=== PATIENT | female | born 1950 | race Caucasian/White ===

== ENCOUNTER 2018-05-14 10:18 | Inpatient (IN) ==
--- NOTE | 2018-05-14 10:27 | P.HPUP ---
The Pre-Admit History and Physical Examination regarding the above named patient was reviewed (including, but not limited to, vital signs, heart, lungs, co-morbid conditions), and upon re-examination it is noted that: the patient's condition has not significantly changed since the last examination.
[2018-05-14] MEDS ORDERED: Chlorhexidine Gluconate 2% 1 Pack (2 Cloths) TOPICAL ONE (10:37)
[2018-05-14] MEDS ORDERED: Metoprolol Tartrate 25 MG Tablet PO ONE (10:37)
[2018-05-14] MEDS ORDERED: ceFAZolin Inj 1 GM in Sodium Chlor 0.9% Inj 100 ML IV.SIG SCH (11:00)
[2018-05-14] MEDS ORDERED: Sodium Chlor 0.9% Inj 500 ML IV.SIG ONE (11:00)
[2018-05-14] MEDS ORDERED: Sodium Chloride 0.9% 2 ML Flush PRN IV.FLUSH (11:05)
[2018-05-14] MEDS: Dextrose 5%/NaCl 0.9% Inj 1,000 ML IV.CONT SCH ×2 (11:20→18:04)
[2018-05-14] MEDS ORDERED: Bupivacaine 0.5% Inj 50 ML MDV Vial ONE (12:20)
[2018-05-14] MEDS ORDERED: Phenylephrine/NS 1000 MCG/10ML Syringe IV.PUSH ONE (12:40)
[2018-05-14] MEDS ORDERED: Neostigmine Inj 5 MG/5 ML Syringe IV.PUSH ONE (12:40)
[2018-05-14] MEDS ORDERED: Normosol-R pH 7.4 Inj 3,000 ML IV.CONT ONE (12:40)
[2018-05-14] MEDS ORDERED: Glycopyrrolate Inj 1 MG/5 ML Syringe IV.PUSH ONE (12:40)
[2018-05-14] MEDS ORDERED: Lidocaine PF 1% Inj 5 ML Syringe OTHER ONE (12:40)
[2018-05-14] MEDS ORDERED: Potassium Chlor 40 mEq Premix 40 MEQ/100 ML PIGGYBACK IV.SIG PRN (14:42)
[2018-05-14] MEDS ORDERED: Bupivacaine PF 0.5% Inj 30 ML Vial NERV BLOCK PRN (14:42)
[2018-05-14] MEDS ORDERED: Potassium Chlor 20 mEq Premix 20 MEQ/100 ML PIGGYBACK IV.SIG PRN (14:42)
[2018-05-14] MEDS ORDERED: Ketorolac Inj 30 MG/ML (IVP) Vial IV.PUSH PRN (14:42)
[2018-05-14] MEDS ORDERED: Naloxone Inj 0.4 MG/ML Vial IV.PUSH PRN (14:42)
[2018-05-14] MEDS ORDERED: fentaNYL Citrate Inj 100 MCG/2 ML Ampul ONE ×2 (14:49)
[2018-05-14] MEDS ORDERED: Morphine Inj 30 MG/30 ML PCA.VIAL PCA ONE (15:19)
[2018-05-14] MEDS ORDERED: KCL 20 mEq/D5W/NaCl 0.9% Inj 1,000 ML ONE (15:19)
[2018-05-14] MEDS: Morphine Inj 30 MG/30 ML PCA.VIAL PCA PRN (15:30)
[2018-05-14] MEDS: KCL 20 mEq/D5W/NaCl 0.9% Inj 1,000 ML IV.CONT SCH ×2 (16:44→21:35)
[2018-05-14] MEDS: ceFAZolin Inj 1 GM in Sodium Chlor 0.9% Inj 100 ML IV.SIG SCH (18:25)
[2018-05-14] MEDS ORDERED: Sodium Chloride 0.9% 2 ML Flush BID IV.FLUSH SCH (21:00)
[2018-05-14] MEDS: Topiramate 25 MG Tablet PO SCH (21:35)
[2018-05-14] MEDS: Sertraline 100 MG Tablet PO SCH (22:11)
[2018-05-15] MEDS: ceFAZolin Inj 1 GM in Sodium Chlor 0.9% Inj 100 ML IV.SIG SCH ×2 (01:11→06:18)
[2018-05-15 04:27] LABS: Hematocrit 32.1 % (35.0-46.0); Hemoglobin 10.6 gm/dL (11.6-15.3); Lymph # (Auto) 0.7 th/mm3 (1.0-4.8); Lymph % (Auto) 8.5 % (9.0-44.0); Mean Corpuscular HGB Conc 33.2 % (32.0-36.0); Mean Corpuscular Hemoglobin 30.2 pg (27.0-34.0); Mean Corpuscular Volume 91.1 fL (80.0-100.0); Mean Platelet Volume 8.4 fL (7.0-11.0); Mono # (Auto) 0.7 th/mm3 (0.0-0.9); Mono % (Auto) 8.2 % (0.0-8.0); Neut # (Auto) 7.1 th/mm3 (1.8-7.7); Neut % (Auto) 83.3 % (16.0-70.0); Platelet Count 166 th/mm3 (150-450); Red Blood Count 3.52 mil/mm3 (4.00-5.30); Red Cell Distribution Width 14.1 % (11.6-17.2); White Blood Count 8.5 th/mm3 (4.0-11.0)
[2018-05-15] MEDS: Dextrose 5%/NaCl 0.9% Inj 1,000 ML IV.CONT SCH (04:39)
[2018-05-15 04:56] LABS: Calcium 7.5 mg/dL (8.5-10.1); Carbon Dioxide 24.9 meq/L (21.0-32.0)
[2018-05-15] MEDS: KCL 20 mEq/D5W/NaCl 0.9% Inj 1,000 ML IV.CONT SCH (07:19)
--- NOTE | 2018-05-15 07:36 | P.PNCS ---
Subjective Colorectal Surgery Post Op Day #: 1 Interval history: afebrile, VSS UO good comfortable Objective Result Diagrams: 05/15/18 03:46 05/15/18 03:46 Objective Remarks: PE alert Abd - soft, wound dry, JUAN JOSE serous Assessment and Plan - Plan Imp: stable post-op OOB decr IVF tx to floor
[2018-05-15] MEDS: KCL 20 mEq/NACL 0.45% Inj 1,000 ML IV.CONT SCH ×2 (08:28→17:02)
[2018-05-15] MEDS: Topiramate 25 MG Tablet PO SCH ×2 (08:30→20:11)
[2018-05-15] MEDS: Pantoprazole Inj 40 MG Vial IV.PUSH SCH (08:30)
--- NOTE | 2018-05-15 09:21 | MR ---
cc: Timmy Epstein MD DATE: 05/14/2018 PREOPERATIVE DIAGNOSIS: Chronic diverticulitis. PROCEDURE: Exploratory laparotomy with proctosigmoidectomy and low pelvic anastomosis. POSTOPERATIVE DIAGNOSIS: Short segment diverticulitis. SURGEON: Timmy Epstein MD. DIE DESIGNER APPRENTICE: Joe Augustin MD. DETAILS OF PROCEDURE: The patient was placed in the supine position. After adequate general anesthesia, her legs were placed in the universal stirrups and supported appropriately. The abdomen and perineum were then prepped with Betadine solution and draped in the usual sterile fashion. With Dr. Augustin's assistance, the abdomen was opened through an infraumbilical transverse incision, dividing the rectus muscles with electrocautery. Exploration revealed area of the rectosigmoid which was thickened and edematous, a very short segment, but consistent with 1 or 2 inflamed diverticulum. The proximal and distal bowel was pretty unremarkable. The small bowel was run from ligament of Treitz down to the ileocecal valve and felt to be normal. The liver was normal with the gallbladder previously removed and a large cyst in the right lobe of the liver. The stomach and duodenum were unremarkable. The uterus was atrophic, appropriate for the patient's age. The right ovary had been removed. The left ovary was still present, but normal. Great vessels were of normal caliber and fairly soft. First, the sigmoid colon was mobilized medially by dividing along the white line of Toldt. The left ureter was identified and carefully preserved. Dissection then proceeded up to the left gutter, taking down attachments to the retroperitoneum, mobilizing the left colon, taking down the splenic flexure into the lesser sac, and taking the gastrocolic omentum off the transverse colon. The right retroperitoneal space was then opened and the bowel dissected off the presacral fascia. Pedicle for the superior hemorrhoidal vessel was identified and divided between Kellys, obtaining hemostasis with Vicryl ties. Dissection proceeded down, mobilizing the bowel off the presacral fascia toward the pelvic floor. At a point below the inflammatory process, the rectum appeared quite normal and pliable and the mesorectum was taken with electrocautery and Vicryl ties and the bowel finally divided between a pursestring suture device and a Vernon clamp. The bowel was then sized to reach the rectal pouch without tension and with good blood supply, preserving the left colic vessels. At the appropriate point, the marginal artery was taken and the bowel divided between the pursestring suture device and a Vernon clamp. The end of the bowel was sized to accept a 29 mm EEA stapling anvil and this was secured with a pursestring suture. Dr. Augustin then inserted the stapling instrument transanally under direct vision and was brought out to the end of rectal pouch and the pursestring suture tied. The stapler was then reassembled, the bowel aligned properly, the stapled closed and fired. Upon withdrawal, 2 complete donuts of tissue was seen. Gentle insufflation to confirm an airtight anastomosis. The abdomen was then irrigated copiously with normal saline. Adequate hemostasis achieved. A Isaias-Fernandes drain placed down into the presacral space and brought up through a stab wound in the right lower quadrant, secured to the skin with a nylon suture. Transverse incision closed anatomically in 2 layers using #1 PDS sutures to reapproximate the respective fascial layers. On-Q catheters were placed into the rectus sheaths on both sides and brought out through subcutaneous tunnels above the transverse incision. The subcutaneous tissue was irrigated copiously and the skin closed with a running subcuticular Vicryl suture. Wound area washed with normal saline and dried, sterile dressing of Telfa and gauze applied. The patient tolerated the procedure quite well and was brought to the recovery room in stable condition. The sponge and needle counts were correct at the end of the procedure. Timmy Epstein MD [facility]/rs , 07:55 AM , 08:02 AM
[2018-05-15] MEDS: Sertraline 100 MG Tablet PO SCH (20:11)
[2018-05-15] MEDS: Morphine Inj 30 MG/30 ML PCA.VIAL PCA PRN (20:45)
[2018-05-16] MEDS: KCL 20 mEq/NACL 0.45% Inj 1,000 ML IV.CONT SCH ×3 (02:42→23:03)
[2018-05-16 06:56] LABS: Baso % (Auto) 0.3 % (0.0-2.0); Eos % (Auto) 0.2 % (0.0-4.0); Hematocrit 30.5 % (35.0-46.0); Hemoglobin 10.1 gm/dL (11.6-15.3); Lymph # (Auto) 1.1 th/mm3 (1.0-4.8); Lymph % (Auto) 14.9 % (9.0-44.0); Mean Corpuscular Hemoglobin 29.8 pg (27.0-34.0); Mean Corpuscular Volume 90.3 fL (80.0-100.0); Mean Platelet Volume 8.5 fL (7.0-11.0); Mono # (Auto) 0.6 th/mm3 (0.0-0.9); Mono % (Auto) 7.3 % (0.0-8.0); Neut # (Auto) 5.9 th/mm3 (1.8-7.7); Neut % (Auto) 77.3 % (16.0-70.0); Platelet Count 158 th/mm3 (150-450); Red Blood Count 3.37 mil/mm3 (4.00-5.30); Red Cell Distribution Width 14.3 % (11.6-17.2); White Blood Count 7.6 th/mm3 (4.0-11.0)
[2018-05-16 07:30] LABS: Calcium 8.1 mg/dL (8.5-10.1); Carbon Dioxide 22.9 meq/L (21.0-32.0); Potassium 4.7 meq/L (3.5-5.1)
[2018-05-16] MEDS: Topiramate 25 MG Tablet PO SCH ×2 (09:37→20:18)
[2018-05-16] MEDS: Pantoprazole Inj 40 MG Vial IV.PUSH SCH (09:37)
--- NOTE | 2018-05-16 19:33 | P.PNCS ---
Subjective Colorectal Surgery Post Op Day #: 2 Interval history: afebrile, VSS UO good min PO Objective Result Diagrams: 05/16/18 06:07 05/16/18 06:07 Objective Remarks: PE alert Abd - soft, wound dry, JUAN JOSE serous Assessment and Plan - Plan Imp: OOB decr IVF tx to floor adv PO DC anguiano
[2018-05-16] MEDS: Sertraline 100 MG Tablet PO SCH (20:18)
[2018-05-17] MEDS: Topiramate 25 MG Tablet PO SCH ×2 (09:10→20:09)
[2018-05-17] MEDS: Pantoprazole Inj 40 MG Vial IV.PUSH SCH (09:11)
--- NOTE | 2018-05-17 09:48 | P.PNCS ---
Subjective Colorectal Surgery Post Op Day #: 3 Interval history: afebrile, VSS UO good raquel PO Objective Result Diagrams: 05/16/18 06:07 05/16/18 06:07 Objective Remarks: PE alert Abd - soft, wound dry, JUAN JOSE serous - min Assessment and Plan - Plan Imp: OOB decr IVF - hep lock tx to floor adv PO - reg food DC plans
[2018-05-17] MEDS: Sertraline 100 MG Tablet PO SCH (20:09)
[2018-05-17] MEDS: KCL 20 mEq/NACL 0.45% Inj 1,000 ML IV.CONT SCH (20:15)
[2018-05-17 20:19] VITALS: O2SAT 96
[2018-05-18 00:17] VITALS: RESP 17
[2018-05-18] MEDS: KCL 20 mEq/NACL 0.45% Inj 1,000 ML IV.CONT SCH (05:10)
[2018-05-18 09:45] VITALS: BP 127/63; PULSE 66; TEMP 99.3
[2018-05-18] MEDS: Pantoprazole Inj 40 MG Vial IV.PUSH SCH (09:54)
[2018-05-18] MEDS: Topiramate 25 MG Tablet PO SCH (09:54)
== END 2018-05-18 12:08 | disposition home or self-care (01) | DRG 331 ==
LOC: HSDI 10:18 → HCPC 16:17 → N07 05-17 19:06
PROVIDERS: ADMIT Colon & Rectal Surgery; ATTEND Colon & Rectal Surgery
CPT/HCPCS: 80048; 85025; 86850; 86900; 86901; 88307; 94150; C9113; J0131; J0690; J1100; J1940; J2250; J2270; J2370; J2405; J2704; J2710; J2765; J3010; J3480; J7120